=== PATIENT | female | born 1990 | race African-American/Black ===

== ENCOUNTER 2022-02-04 00:55 | Emergency (ER) | payer SELFPAY ==
--- NOTE | 2022-02-04 01:00 | NUR ---
PATIENT LEFT BEFORE TRIAGE ASSESSMENT AND REFUSED TO SEE A NURSE OR A DOCTOR
== END 2022-02-04 01:00 | disposition left against medical advice (07) ==
LOC: ER 00:59
DX: Z53.21 Procedure and treatment not carried out due to patient leaving prior to being seen by health care provider (principal)

== ENCOUNTER → 2022-02-08 | Emergency (ER) | payer SELFPAY ==
[~2022-02-08] VITALS: Ht 167.6 cm; Wt 49.9 kg
[2022-02-08 09:49] VITALS: BP 153/80
--- NOTE | 2022-02-08 09:54 | NUR ---
After Triage asked for food and blanket which was provided THEN pt chacorta
== END | disposition home or self-care (01) ==
LOC: ER 09:40
DX: Z53.21 Procedure and treatment not carried out due to patient leaving prior to being seen by health care provider (principal)